=== PATIENT | male | born 1950 | race Caucasian/White ===

== ENCOUNTER → 2018-11-27 15:32 | Outpatient (CLI) | payer MEDICAID, SELFPAY ==
[2015-01-17 07:51] VITALS: BMI 32.5
[2018-11-27 16:04] LABS: Uric Acid 8.1 mg/dL (3.5-7.2)
== END ==
DX: M79.89 Other specified soft tissue disorders (principal); L53.9 Erythematous condition, unspecified
CPT/HCPCS: 84550

== ENCOUNTER → 2019-09-08 10:51 | Outpatient (CLI) | payer OTHER, MEDICARE, SELFPAY ==
--- NOTE | 2019-09-08 11:14 | US_ITS ---
STUDY: RENAL ULTRASOUND - COMPLETE REASON FOR EXAM: Male, 68 years old. Chronic kidney disease TECHNIQUE: Ultrasound evaluation of the kidneys was performed with real-time and static martinez-scale imaging. COMPARISON: None available. FINDINGS: RIGHT KIDNEY: Normal location of the right kidney, which is normal in size. The right kidney measures 12 cm. There is a normal cortex of the right kidney. There is no right renal mass or cyst. There are no right renal calculi. There is no right hydronephrosis. LEFT KIDNEY: Normal location of the left kidney, which is normal in size. The left kidney measures 13 cm. There is a normal cortex of the left kidney. There is no left renal mass or cyst. There are no left renal calculi. There is no left hydronephrosis. AORTA: No evidence of abdominal aortic aneurysm. I.V.C.: The IVC is patent. BLADDER: The urinary bladder is partially distended and appears unremarkable. US/Kidney and Bladder IMPRESSION: Normal ultrasound of the kidneys and urinary bladder. Electronically Signed: Jesus Johnson, at 19:39 EST Tel , Service support ,
== END ==
DX: N18.9 Chronic kidney disease, unspecified (principal)
CPT/HCPCS: 76770

== ENCOUNTER → 2019-10-18 08:13 | Outpatient (CLI) | payer OTHER, MEDICARE, SELFPAY ==
--- NOTE | 2019-10-18 09:00 | PET_ITS ---
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 COMPARISON EXAMINATION: None available INDEX LESION SIZE SUV INTERPRETATION Lower thoracic, lumbar spine 5.6 (max) Correlation with magnetic resonance imaging is recommended TECHNIQUE: Following the intravenous administration of 19.05 mCi of F-18 deoxyglucose via the left antecubital fossa, multiplanar image acquisitions of the neck, chest, abdomen and pelvis to level of mid thigh, obtained at one hour post radiopharmaceutical administration contemporaneously interpreted with the current CT of the neck, chest, abdomen and pelvis, to level of mid thigh, dated 10/18/2019 via coregistration reveals: BLOOD GLUCOSE LEVEL:?? 101 mg/dl?HEIGHT:?68 inches?WEIGHT: 250 lbs. FINDINGS: 1. There is heterogeneous increased glucose metabolism defined in the tenth thoracic vertebra, second, fourth-fifth lumbar vertebrae-vertebral body generating a calculated maximal standard uptake value of 5.6. 2. Normal physiologic distribution of the radiopharmaceutical is apparent in the hepatic (1.9) and splenic parenchyma, both renal units, bladder and visualized intestinal tract. The visualized portion of the cerebral cortex demonstrate symmetric and preserved glucose metabolism. Facilitated uptake is noted in the left hip articulation non-contiguous to bone most consistent with activated leukocytes associated with an inflammatory arthritis presentation. Photopenia is defined in the upper abdomen contiguous to cyst formation within the right lobe of the liver. Pertinent CT findings are as follows: CHEST: Coronary arterial calcification is observed. Atherosclerotic calcification is noted in the thoracic aorta. The maximal axial diameter of the ascending thoracic aorta is 46.4-mm. Bilateral axillary soft tissue densities with fatty hilus are ametabolic. Scattered mediastinal soft tissue reveals no evidence of facilitated FDG uptake. ABDOMEN AND PELVIS: There is borderline fatty metamorphosis-steatosis defined in the hepatic parenchyma. Cyst formation appears evident in the right lobe of the hepatic parenchyma as previously described. The gallbladder is surgically absent. Surgical clip placement is defined in the left upper abdomen. There is atherosclerotic calcification defined in the abdominal aorta without evidence of dilatation-aneurysm formation. Pelvic arterial calcification is observed. Right and left fat containing inguinal hernias are noted. Colonic diverticulosis without evidence of diverticulitis is demonstrated. SKELETAL: Degenerative changes are noted in the cervical, thoracic and lumbar spine. PET/PET/CT Tumor Base -Thigh Init IMPRESSION: 1. Increased glucose metabolism identified in the tenth thoracic and second, fourth-fifth lumbar vertebrae may warrant further investigation with magnetic resonance imaging secondary to the quantitative degree of uptake. (Diana et al, Clinical Nuclear Medicine, 29:161, 2004). 2. No other quantitatively significant hypermetabolic abnormalities are noted. Electronic Signature Saul Spencer D.O. Electronically Signed: Saul Spencer DO at 15:40 EST Tel , Service support ,
== END ==
DX: D47.2 Monoclonal gammopathy (principal)
CPT/HCPCS: 78815; A9552

== ENCOUNTER → 2020-03-15 08:47 | Outpatient (CLI) | payer OTHER, MEDICARE, SELFPAY ==
--- NOTE | 2020-03-15 | ASPIGT_PTH ---
PATIENT: DANISHA CULVER LOC: CT U#:[id number] AGE/SX: 74/M ROOM: RE03/15/[address]: Dr. Tavon Paulino MD : 1950 BED: DIS: SPEC #: [id number] RECD: 03/15/20 13:38 STATUS: KEESHA ARAM #: [id number] HOLLI: 03/15/20 00:[address]: Tavon Paulino DEPT: SURGICAL PATHOLOGY RECD BY: Nilton Sanches ENTERED: 03/15/20 13:38 SP TYPE: ASP RAD OTHR DR: [facility] Tissues: Lung, NOS Procedures: FNA Specimen Adequacy Special Stain Group II Surgery Specimen Level V Imprint (control) HEADER OPERATION: Liver mass, CT-guided core biopsy, cyst drainage PRE-OP DIAGNOSIS: Liver mass, enlarging liver cyst TISSUE SUBMITTED: Liver mass 18 gauge x3 MICROSCOPIC DIAGNOSIS Liver mass, CT-guided core biopsy: A fragment of fibrous tissue with benign ductal tissue with reactive changes, suggestive of Von-Meyenburg complex. See comment. CHAD:gagandeep 03/16/20 COMMENT The specimen is evaluated at the time of biopsy by Dr. Lui. Immediate Evaluation = Benign ductal cells noted. Negative for malignant cells. Hepatocytes not seen. Bloody specimen. Liver parenchymal tissue is not identified. A fragment of skeletal muscle tissue is also noted. Immunohistochemistry ([id number]) supports the above diagnosis. Correlation with clinical, radiologic findings and appropriate follow up are necessary. Case has been reviewed in consultation with Dr. Hampton who concurs with the above diagnosis. IDC:AM MICROSCOPIC DESCRIPTION Slides are reviewed. GROSS DESCRIPTION Received in fixative is one container labeled with the patient's name and designated liver cyst. The specimen consists of two irregular fragments of light guthrie soft tissue that in aggregate measure 0.2 x <0.1 x <0.1 cm. The specimen is totally submitted in one cassette. Two touch imprints are prepared at the time of core biopsy. / AM:gagandeep 03/15/20 TC:5 CPT: 17003, 01756
--- NOTE | 2020-03-15 | IMM_PTH ---
PATIENT: DANISHA CULVER LOC: CT U#:[id number] AGE/SX: 74/M ROOM: RE03/15/[address]: Dr. Tavon Paulino MD : 1950 BED: DIS: SPEC #: [id number] RECD: 03/16/20 13:15 STATUS: KEESHA ARAM #: [id number] HOLLI: 03/15/20 00:[address]: Tavon Paulino DEPT: IMMUNOHISTOCHEMISTRY RECD BY: Meme Coppola ENTERED: 03/16/20 13:16 SP TYPE: IMMUNO OTHR DR: Tissues: Liver, NOS Procedures: Bipin Ret (add) CD31 (add) CK8 (add) Vimentin (add) CK7 (initial) PHYSICIAN & INSTITUTION [place] [id number] SPECIMEN INFORMATION: Tissue Source: Liver mass, CT-guided core biopsy Clinical Info: Liver mass Specimen Number: [id number] CPT code: 13701, 01940 x4 METHODOLOGY: Deparaffinized sections of prefer/formalin-fixed tissue or PAP/DQ stained slides are incubated with monoclonal/polyclonal antibodies/oligonucleotide probes. Localization is made via biotin free immunoperoxidase method. Appropriate controls are performed and reacted as expected. Results on target cell population are indicated in the following table: RESULTS: ANTIBODY / CLONE RESULT CK8 ([id number]) positive CK7 (OV-TL12/30) positive CD31 (BECKA/70A) negative CALRET (polyclonal) negative Vimentin (V9) negative These tests were developed and their performance characteristics determined by [facility]. They may not have been cleared or approved by the U.S. Food and Drug Administration. The FDA has determined that such clearance or approval is not necessary. The above immunohistochemical/dualISH markers are ordered and reviewed by the Pathologist. INTERPRETATION: Liver mass, CT-guided core biopsy: Fibrous tissue with benign ducts suggestive of Von Meyenburg complex. SJ:gagandeep 03/17/20 Case has been reviewed in consultation with Dr. Hampton who concurs with the above diagnosis. IDC:AM
--- NOTE | 2020-03-15 09:00 | NURSING ---
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 PT STS WILL ARRIVE AT 0900 FOR LABS PLANNED FOR THE CT BX. PT DOES NOT HAVE A RIDE OR ANYONE WHO CAN STAY WITH HIM AFTER THE PROCEDURE. PT AGREEABLE TO COMPLETING THE PROCEDURE USING LOCAL ANESTHETIC ONLY WITH CT GUIDANCE.
--- NOTE | 2020-03-15 09:06 | CT_ITS ---
PROCEDURE: CT DIRECTED CORE LIVER BIOPSY INDICATION: Male, 69 years old. ENLARGING LIVER CYST -DRAINAGE/BIOPSY PHYSICIAN: Dr. SAÚL Sheriff CONSENT: Written informed consent was obtained having explained the risks, benefits and alternatives in detail with the patient who accepted the risks and agreed to proceed. Laboratory review and clinical assessment was performed. RADIATION DOSAGE (If Supplied By Facility): CTDIvol = ( 15.2 ) mGy, DLP = ( 415.86 ) mGycm Individualized dose optimization techniques were used for this CT. TECHNIQUE: The overlying skin was prepped and draped in usual sterile fashion. Local anesthetic was applied. Using CT image guidance with image documentation, a suitable location in the right lobe of the liver was identified. Using a right lateral approach, puncture of the liver was uneventful with an 18-gauge core needle system. 3, 18-gauge core samples were obtained, and submitted in formalin to the pathologist for further assessment. Followup CT scan revealed no distinct sequelae. CT/Biopsy/Inj or Needle Placement IMPRESSION: 1. CT directed core needle biopsy of the liver, using CT image guidance with image documentation as described. Electronically Signed: Reagan Montoya, at 10:53 EDT , Service support ,
[2020-03-15 09:07] LABS: Hematocrit 44.2 % (40-54); Hemoglobin 14.1 g/dL (13.0-16.5); Mean Corp Hgb Conc 31.9 g/dL (32-36); Mean Corpuscular Hgb 29.7 pg (27.0-32.0); Mean Corpuscular Volume 93.2 fL (80-94); Mean Platelet Vol. 9.9 fl (6.2-12.0); Platelet Count 208 K/mm3 (150-450); RBC Distribution Width CV 15.7 % (11.6-14.6); RBC Distribution Width SD 53.2 fl (35.1-43.9); Red Blood Count 4.74 M/mm3 (4.6-6.2); White Blood Count 6.8 K/mm3 (4.4-11.0)
[2020-03-15 09:20] LABS: International Normalized Ratio 1.2; Prothrombin Time (Protime)PT. 14.4 SECONDS (11.7-14.9)
[2020-03-15 09:21] LABS: Partial Thromboplast Time 37.7 Seconds (24.1-36.2)
[2020-03-15 09:36] VITALS: BP 148/113; PULSE 115; RESP 14; TEMP 37.2; O2SAT 95; BMI 30.4
[2020-03-15 10:14] VITALS: BP 154/122; PULSE 112; RESP 14; O2SAT 95
[2020-03-15 10:26] VITALS: BP 144/99; PULSE 125; RESP 14; O2SAT 95
[2020-03-15 10:45] VITALS: BP 155/104; PULSE 125; RESP 16; O2SAT 95
--- NOTE | 2020-03-15 10:50 | NURSING ---
PT EATING SANDWICH AND DRINKING DIET COKE. C/O 03/27 PAIN AT SITE OF BIOPSY, RUQ-LATERAL. ORDER OF TYLENOL REQUESTED BY PT AND RECEIVED FROM DR Braun
[2020-03-15] MEDS: Acetaminophen 500 MG Tablet 1000 MG PO (10:56)
[2020-03-15 11:15] VITALS: BP 170/120; PULSE 123; RESP 17; O2SAT 97
--- NOTE | 2020-03-15 11:31 | NURSING ---
PT STS READY FOR D/C. PAIN 5/10, AND PATIENT COMFORTABLE WITH THAT. REFUSES ICE PACK FOR THE ROAD. PT [facility].
== END ==
PROVIDERS: Referring Provider Internal Medicine Medical Oncology; Visit Provider Internal Medicine Medical Oncology
DX: K76.89 Other specified diseases of liver (principal)
CPT/HCPCS: 47000; 36415; 77012; 85027; 85610; 85730; 88172; 88305; 88307; 88313; 88341; 88342

== ENCOUNTER → 2020-09-20 14:17 | Outpatient (CLI) | payer OTHER, MEDICARE, SELFPAY ==
--- NOTE | 2020-09-20 14:28 | US_ITS ---
STUDY: SCROTUM ULTRASOUND REASON FOR EXAM: Male, 69 years old. Bilateral swelling and pain TECHNIQUE: Ultrasound evaluation of the scrotum was performed with color Doppler and static leon-scale imaging. COMPARISON: None. FINDINGS: RIGHT TESTICLE INTRATESTICULAR: There is a normal size of the right testicle. The right testicle measures 4.4 cm x 2.9 cm x 5.6 cm. There is a homogenous echotexture. There is normal arterial and normal venous vascularity. There is no demonstrated right testicular mass or cyst. EXTRATESTICULAR: The epididymis is normal in size. The epididymis head measures 1 cm x 1.1 cm x 1 cm. There is normal vascularity of the epididymis. There is no demonstrated epididymal cystic structure. There is a small hydrocele. There is no demonstrated varicocele. There is no demonstrated extratesticular mass or cyst. LEFT TESTICLE INTRATESTICULAR: There is a normal size of the left testicle. The left testicle measures 3.9 cm x 2.8 cm x 2.5 cm. There is a homogenous echotexture. There is normal arterial and normal venous vascularity. There is no demonstrated left testicular mass or cyst. EXTRATESTICULAR: The epididymis is normal in size. The epididymis head measures 7 mm x 9 mm x 1 cm. There is normal vascularity of the epididymis. There is no demonstrated epididymal cystic structure. There is a small hydrocele. There are prominent extratesticular veins consistent with a varicocele. There is no demonstrated extratesticular mass or cyst. US/Testicular with Arterial Flow IMPRESSION: Small bilateral hydroceles. Left varicocele. Electronically Signed: Reagan Montoya MD at 15:32 EST , Service support ,
== END ==
DX: N50.89 Other specified disorders of the male genital organs (principal)
CPT/HCPCS: 76870; 93976

== ENCOUNTER → 2020-10-23 10:37 | Outpatient (CLI) | payer OTHER, SELFPAY ==
--- NOTE | 2020-10-23 10:40 | US_ITS ---
STUDY: ABDOMINAL ULTRASOUND - RIGHT UPPER QUADRANT REASON FOR VISIT: Male, 69 years old CYSTIC DISEASE OF LIVER TECHNIQUE: Ultrasound evaluation of the right upper quadrant was performed with real-time and static leon-scale imaging. TECHNICAL QUALITY: Limited. Examination limited due to a combination of factors including obesity and bowel gas. COMPARISON: None. FINDINGS: Liver: The liver measures 25.6 cm. There is increased echogenicity consistent with fatty infiltration. Mild nodularity of the margin suggests liver disease. There is a 9.3 x 7.7 x 7.0 cm cyst within the liver. The bile ducts are within normal limits. There is hepatic color flow. The direction of portal flow is hepatopetal. There is no demonstrated mass lesion. Gallbladder: The patient is status post cholecystectomy. Common Bile Duct (C.B.D.): The common bile duct measures 5.6 mm. Pancreas: There is nonvisualization of the pancreas. Right Kidney: Normal size of the right kidney. The right kidney measures 11.8 x 6.2 x 6.1 cm. Normal renal cortex. The right cortex measures 2.4 cm. There is no demonstrated renal mass or cyst. There is no right hydronephrosis. There is ascites surrounding the liver. US/Liver IMPRESSION: Findings suggestive of liver disease with ascites. Liver cysts measuring up to 9.3 cm in maximum dimension. Status post cholecystectomy. Nonvisualized pancreas, remainder of the right upper quadrant ultrasound unremarkable. Electronically Signed: Sylvie Ragland MD at 0:59 EST , Service support ,
== END ==
PROVIDERS: Referring Provider Internal Medicine Medical Oncology; Visit Provider Internal Medicine Medical Oncology
DX: Q44.6 Cystic disease of liver (principal)
CPT/HCPCS: 76705